=== PATIENT | female | born 1950 ===

== ENCOUNTER 2018-01-17 05:28 | Day surgery (SDC) | payer MEDICARE, OTHER ==
--- NOTE | 2018-01-16 16:17 | Pre-Procedure Note/Attestation ---
Pre-Procedure Note/Attestation Complete Prior to Procedure Planned Procedure: right Procedure Narrative: 1. CATARACT EXTRACTION WITH PHACO AND PC IOL IMPLANTATION, RIGHT EYE. Indications for Procedure Pre-Operative Diagnosis: 1. CATARACT (AGE RELATED NUCLEAR) , RIGHT EYE. Attestation I attest that I discussed the nature of the procedure; its benefits; risks and complications; and alternatives (and the risks and benefits of such alternatives ), prior to the procedure, with the patient (or the patient's legal pharmacy sales representative). I attest that, if there was a reasonable possibility of needing a blood transfusion, the patient (or the patient's legal pharmacy sales representative) was given the [place] [employer] standardized written summary, pursuant to the Faustino Osborn Blood Safety Act ([place] Health and Safety Code # 1645, as amended). I attest that I re-evaluated the patient just prior to the surgery and that there has been no change in the patient's H&P, except as documented below: Tapan Saini MD January 16, 2018 16:17
[~2018-01-17] VITALS: Ht 160 cm; Wt 68.0 kg
[2018-01-17] VITALS (9 sets, daily range): BP systolic 116–137; BP diastolic 59–75
[2018-01-17] MEDS ORDERED: acetaZOLAMIDE 125mg tab ORAL ONE (06:00)
[2018-01-17] MEDS: Diclofenac Sod 0.1% Op Soln RIGHT EYE SCH ×3 (06:04→06:24)
[2018-01-17] MEDS: Phenylephrine 10% Opth Soln 5ml RIGHT EYE SCH ×3 (06:04→06:24)
[2018-01-17] MEDS: Akten 3.5% 1ml Btl RIGHT EYE SCH ×3 (06:04→06:24)
[2018-01-17] MEDS: Tropicamide 1% Opth 15ml Soln RIGHT EYE SCH ×3 (06:04→06:24)
[2018-01-17] MEDS: Vigamox Opth Soln 3ml RIGHT EYE SCH ×3 (06:05→06:24)
[2018-01-17] MEDS ORDERED: ATORVASTATIN CA20 MG ORAL (06:13)
[2018-01-17] MEDS ORDERED: JANUVIA100 MG ORAL (06:13)
[2018-01-17] MEDS ORDERED: DILTIAZEM HCL60 MG PO ×2 (06:13)
[2018-01-17] MEDS ORDERED: ASPIRIN EC81 MG ORAL (06:13)
[2018-01-17] MEDS ORDERED: METFORMIN HCL500 M1 ORAL (06:13)
[2018-01-17] MEDS ORDERED: Sterile Water Irrig 1000ml IRRIG ONE (07:00)
[2018-01-17] MEDS ORDERED: NS Irrig 1000ml ONE (07:00)
[2018-01-17] MEDS ORDERED: LR 1000ml ONE ×2 (07:00)
[2018-01-17] MEDS ORDERED: fentaNYL 100 mcg/2 mL IV ONE (07:06)
[2018-01-17] MEDS ORDERED: Midazolam 2mg/2ml Inj ONE (07:06)
[2018-01-17] MEDS ORDERED: Propofol 200mg/20ml IV ONE (07:07)
[2018-01-17] MEDS ORDERED: Carbachol 0.01% Op Soln 1.5ml vial ONE (07:14)
[2018-01-17] MEDS ORDERED: Dexamethasone 4mg/ml vial ONE (07:14)
[2018-01-17] MEDS ORDERED: Lidocaine 1% MPF 10mg/ml 5ml ONE (07:14)
[2018-01-17] MEDS ORDERED: BSS 500ml btl ONE ×2 (07:14→08:02)
[2018-01-17] MEDS ORDERED: EPINEPHrine 1mg/1ml Amp ONE (07:14)
[2018-01-17] MEDS ORDERED: Povidone-Iodine 5% opth solution ONE (07:15)
[2018-01-17] MEDS ORDERED: Tetracaine 0.5% Opth 4ml Soln ONE (07:15)
[2018-01-17] MEDS ORDERED: Sodium Hyaluronate 10 mg/ml 0.85ml ONE ×2 (07:15→07:56)
[2018-01-17] MEDS ORDERED: BSS 15ml BTL ONE (07:15)
[2018-01-17] MEDS ORDERED: LR 1000ml 1,000 ML IVLG SCH (07:50)
--- NOTE | 2018-01-17 07:50 | Anethesia Preoperative Eval ---
Anesthesia Pre-op PMH/ROS General Date of Evaluation: January 17, 2018 Time of Evaluation: 07:12 Anesthesiologist: Ambar ASA Score: ASA 2 Mallampati Score Class I : Soft palate, uvula, fauces, pillars visible Class II: Soft palate, uvula, fauces visible Class III: Soft palate, base of uvula visible Class IV: Only hard plate visible Mallampati Classification: Class II Surgeon: Parveen Diagnosis: R eye cataract Surgical Procedure: R eye cataract extaction Anesthesia History: none Family History: no anesthesia problems Allergies: Coded Allergies: No Known Allergies (Unverified , 01/16/18) Medications: see eMAR Past Medical History Cardiovascular: Reports: HTN; Denies: CAD, NE, valve dz, arrhythmia, other Pulmonary: Denies: asthma, COPD, [place]OV[place], other Gastrointestinal/Genitourinary: Reports: GERD - mild; Denies: CRI, ESRD, other Neurologic/Psychiatric: Denies: dementia, CVA, depression/anxiety, TIA, other Endocrine: Reports: DM - stable on pills; Denies: hypothyroidism, steroids, other HEENT: Reports: cataract (R); Denies: cataract (L), glaucoma, [place] (L), [place] (R), other Hematology/Immune: Denies: anemia, DVT, bleeding disorder, other Musculoskeletal/Integumentary: Denies: OA, RA, DJD, DDD, edema, other PMH Narrative: as above PSxH Narrative: R eye retinal Sx Anesthesia Pre-op Phys. Exam Physician Exam Last Vital Signs Date Time Temp Pulse Resp B/P (MAP) Pulse Ox O2 Delivery O2 Flow Rate FiO2 01/17/18 06:15 97.9 64 20 116/59 98 Room Air 97.9 Constitutional: NAD Neurologic: CN 2-12 intact Cardiovascular: RRR, no M/R/G Respiratory: CTA Gastrointestinal: S/NT/ND Airway Exam Mallampati Score: Class II MO: full Neck: flexible ROM: full Teeth: intact Dentures: no upper, no lower Anesthesia Pre-op A/P Labs see chart Studies Pre-op Studies: EKG - NSR Risk Assessment & Plan Assessment: ASA 2 Plan: MAC Status Change Before Surgery: No Pre-Antibiotics Drug: none CHAITANYA PEREZ M.D. January 17, 2018 07:50
[2018-01-17] MEDS ORDERED: fentaNYL 100 mcg/2 mL IV PRN (08:00)
--- NOTE | 2018-01-17 08:36 | Discharge Summary ---
Discharge Summary Discharge Summary Discharge Summary DATE OF ADMISSION: 01/17/2018 DATE OF DISCHARGE: 01/17/2018 REASON FOR HOSPITALIZATION: Cataract right eye SURGERY PERFORMED: 1- Cataract extraction 2- LRI right eye CONDITION IN THE HOSPITAL:The patient tolerated the surgery without complications. DISCHARGE CONDITION: The patient was stable at discharge. DISCHARGE MEDICATIONS: 1. Vigamox eye drops one drop q.i.d, OD 2. Prednisolone one drop q.i.d, OD 3. Prolensa one drop qd, right eye POSTOPERATIVE ORDERS: The patient has to rest at home. No bending, No lifting, No watching Television tonight. POSTOPERATIVE FOLLOW UP: The patient will be followed in my office tomorrow morning at 7 o'clock. Tapan Saini MD January 17, 2018 08:36
--- NOTE | 2018-01-17 08:39 | Brief Operative Note ---
Immediate Post Operative Note Operative Note Chief Complaint: Blurry right eye Pre-op Diagnosis: 1. CATARACT (AGE RELATED NUCLEAR) , RIGHT EYE. Procedure: 1- Cataract extraction with phaco and PC IOL implantation, right eye 2- Limbal relaxing incision ( LRI ), right eye Post-op Diagnosis: same as pre-op Surgeon: Tapan Saini MD Engineering Manager Electronics: None Additional Surgeons: None Anesthesiologist: Dr. Villalta Anesthesia: MAC Specimen: none Complications: none Condition: stable Fluids: 500ml Estimated Blood Loss: none Drains: none Implant(s) used?: Yes - Monofocal PC IOl implanted in the right eye without complication Tapan Saini MD January 17, 2018 08:39
--- NOTE | 2018-01-17 08:40 | Immediate Post-Op Evaluation ---
Immediate Post-Op Evalulation Immediate Post-Op Evalulation Procedure: R eye cataract extraction with IOL Date of Evaluation: January 17, 2018 Time of Evaluation: 08:39 IV Fluids: 300 Blood Products: NONE Estimated Blood Loss: none Urinary Output: none Blood Pressure Systolic: 124 Blood Pressure Diastolic: 65 Pulse Rate: 72 Respiratory Rate: 20 O2 Sat by Pulse Oximetry: 98 Temperature (Fahrenheit): 97.8 Pain Score (1-10): 1 Nausea: No Vomiting: No Complications none Patient Status: awake, patent, none Hydration Status: adequate CHAITANYA PEREZ M.D. January 17, 2018 08:40
[2018-01-17] MEDS ORDERED: acetaZOLAMIDE 125mg tab ONE (08:49)
--- NOTE | 2018-01-17 09:12 | 48 Hour Post Anesthesia Eval ---
Post Anesthesia Evaluation Procedure: R eye cataract extraction with IOL Date of Evaluation: January 17, 2018 Time of Evaluation: 09:11 Blood Pressure Systolic: 125 0: 72 Pulse Rate: 68 Respiratory Rate: 20 Temperature (Fahrenheit): 97.6 O2 Sat by Pulse Oximetry: 99 Airway: patent Nausea: No Vomiting: No Pain Intensity: 1 Hydration Status: adequate Cardiopulmonary Status: stable Mental Status/LOC: patient returned to baseline Follow-up Care/Observations: n/a Post-Anesthesia Complications: none Follow-up care needed: ready to discharge CHAITANYA PEREZ M.D. January 17, 2018 09:12
--- NOTE | 2018-01-18 03:45 | Operative Note - Dictated ---
DATE OF OPERATION: 01/17/2018 FACILITY: [facility]. SURGEON: Tapan Saini M.D. PROSPECT MANAGER: None. ANESTHESIOLOGIST: Hermes Villalta M.D. ANESTHESIA: Monitored anesthesia care (MAC). PREOPERATIVE DIAGNOSES: 1. Cataract, right eye. 2. Astigmatism, right eye. POSTOPERATIVE DIAGNOSES: 1. Cataract, right eye. 2. Astigmatism, right eye. SURGERY PERFORMED: 1. Cataract extraction with phacoemulsification and posterior chamber intraocular lens implantation in the right eye. 2. Limbal relaxing incision (LRI) in the right eye. INDICATION FOR SURGERY: The patient is a 67-year-old lady with history of azotemia, hypertension, and osteoarthritis. She is taking diltiazem, aspirin, atorvastatin for hypercholesterolemia, calcium, vitamin D, and Fosamax. The patient has had epiretinal membrane and she had undergone about six months ago for membrane peeling by Dr. Roldan. Now, she is complaining of blurry vision in the right eye. On examination of the right eye, the cornea is clear. Anterior chamber is clean and quiet. Pupillary reflex is normal, but is sluggish. There is no RAPD. There is 4+ nuclear sclerosis and 2+ cortical cataract. On examination of the fundus, there is macular degeneration. The patient is status post vitrectomy and . To improve her vision in the right eye, the cataract has to be removed and posterior chamber intraocular lens has to be implanted. Meanwhile, the astigmatism has to be addressed as well. INFORMED CONSENT: The nature of the surgery, risks, benefits, alternatives, and potential complications were all explained in detail to the patient in her language, Farsi. The potential complications including, but not limited to bleeding, infection, posterior capsular rupture, lens subluxation, flat anterior chamber, iris prolapse, uveitis, corneal edema, macular edema, endophthalmitis, retinal detachment, loss of vision, and even loss of the eye were all explained in detail to the patient in her language, Farsi. The patient voiced understanding and accepted all the complications. The alternatives including accommodating lens, multifocal lens, toric lens, and conventional cataract surgery with limbal relaxing incision (LRI) for treatment of astigmatism were all explained in detail to the patient, who voiced understanding. The patient elected to have cataract surgery with limbal relaxing incision for treatment of astigmatism. Then, she signed the consent form, which is in the chart. DESCRIPTION OF SURGERY AND FINDINGS: Following that, the patient was taken to the operation room in a stable condition. Lidocaine gel Akten 3.5% were applied to the conjunctiva of the right eye. IV sedation was given by the anesthesiologist, Dr. Villalta. After adequate anesthesia and sedation had been achieved, the right eye was prepped and draped in the sterile fashion for intraocular surgery. Following that, a speculum was placed in the right eye. Before the patient was taken to the operating room, the cornea was marked at 180 and 90 meridian. In the operation room, using corneal marker and marking pen, the steep meridian of the cornea was marked. With a leni knife with 600 micron blade, two parallel incisions were placed on the meridian of the cornea to treat the astigmatism. Following that, using a Super Sharp knife, a clear corneal side port was created. Lidocaine 1% without preservative (MPF) was injected into the anterior chamber. Viscoelastic agent was injected into the anterior chamber. Following that, using a 2.8 mm keratome, a temporal corneal keratotomy was performed. The vision blue was injected under the viscoelastic agent to stain the anterior capsule of the lens. Following that, clear, fresh viscoelastic agent, [place]al[place] was injected into the anterior chamber again. Under the viscoelastic agent, an anterior capsulotomy was performed in the fashion of capsulorrhexis beautifully. Following that, both viscoelastic agent was removed from the anterior chamber. Following that, using balanced salt solution, hydrodissection and hydrodelineation was performed and the nucleus was freed. Following that, clear, fresh viscoelastic agent was injected into the anterior chamber to protect the endothelium of the cornea. Following that, using the phacoemulsification machine in the fashion of horizontal chop, the nucleus was removed in toto. Following that, using irrigation aspiration unit, cortical material was removed from the capsular bag and the capsular bag was polished. At this moment, there was a rent in the posterior capsule, therefore, I decided to put a lens in the sulcus. Therefore, viscoelastic agent was injected into the anterior chamber into the sulcus and a +16.5 diopter [id number] foldable PCIOL with serial number [id number] was injected into the sulcus. The lens was manipulated within the proper position using a Sinskey hook. Following that, all the viscoelastic agent was removed from the anterior and posterior part of the lens. Following that, the anterior chamber was filled with balanced salt solution and the wound was hydrated with balanced salt solution. Miostat was injected into the anterior chamber and the pupil was and myopic. The wound was checked for leakage and there was no leakage. Vigamox eye drops were applied to the conjunctiva of the right eye. The patient tolerated the surgery without complications. At the end of the surgery, the eye was patched with a clear sterile fenestrated shield. Following that, the patient was transferred to the recovery room. In the recovery room, 125 mg of Diamox was given by mouth stat. Postoperative orders and directions were given to the patient. The patient will be discharged home upon stabilization. The patient will be followed in my office tomorrow morning at 7 o'clock. Tapan Saini M.D. DR: LUCY JOB#: [id number] CC:
== END 2018-01-17 10:25 | disposition home or self-care (01) ==
LOC: SUR 05:28
DX: H25.11 Age-related nuclear cataract, right eye (principal); H25.011 Cortical age-related cataract, right eye; H52.201 Unspecified astigmatism, right eye; I10 Essential (primary) hypertension; E78.00 Pure hypercholesterolemia, unspecified; M19.90 Unspecified osteoarthritis, unspecified site; E78.5 Hyperlipidemia, unspecified; E11.9 Type 2 diabetes mellitus without complications; M17.12 Unilateral primary osteoarthritis, left knee; M81.0 Age-related osteoporosis without current pathological fracture; I25.10 Atherosclerotic heart disease of native coronary artery without angina pectoris; K21.9 Gastro-esophageal reflux disease without esophagitis
CPT/HCPCS: 65772; 66984; 82962; J0171; J1100; J2250; J2704; J3010; J7120; V2632; 94003; 94150